=== PATIENT | male | born 1980 | race Two or more races ===

== ENCOUNTER 2023-08-15 14:23 | Emergency (ER) | payer MEDICAID ==
[~2023-08-15] VITALS: Ht 167.6 cm; Wt 104.5 kg
[2023-08-15 17:28] VITALS: BP 128/66; PULSE 69; RESP 18; TEMP 98; O2SAT 98
[2023-08-15] MEDS ORDERED: HYDROcodone-ACET 10/325MG TAB PO ONE (18:00)
[2023-08-15] MEDS ORDERED: KETOROLAC TROMETH 60MG/2ML VIAL IM ONE (18:00)
[2023-08-15] MEDS ORDERED: TRAM50TA2 PO (18:05)
[2023-08-15] MEDS ORDERED: IBUP-1455 PO (18:05)
== END 2023-08-15 18:31 | disposition home or self-care (01) ==
LOC: ER 14:23
DX: S93.491A Sprain of other ligament of right ankle, initial encounter (principal); X50.1XXA Overexertion from prolonged static or awkward postures, initial encounter; Y93.89 Activity, other specified; Y92.89 Other specified places as the place of occurrence of the external cause; Y99.8 Other external cause status
CPT/HCPCS: 73610; 96372; 99283; J1885

== ENCOUNTER 2024-09-05 20:55 | Emergency (ER) | payer MEDICAID ==
[~2024-09-05] VITALS: Ht 167.6 cm; Wt 100.0 kg
[~2024-09-05 20:55] MED LIST: IBUP-1455 PO; TRAM50TA2 PO
--- NOTE | 2024-09-05 21:06 | ED.PDOC ---
HPI Comments 44-year-old male who came to ER for chest pains. Patient does have history of leukemia, and he is on remission. States for the past few days he has been having episodes of dizziness, and at times like he was about to pass out. 15 minutes prior to arrival sudden onset left-sided chest pains, sharp, point tenderness, nonradiating. Denies any prior history of chest pains Chief Complaint: Chest Pain Time Seen by MD: 21:05 Primary Care Provider: DEVIN OSMAN Reviewed Notes: Nurses Notes Allergies: Coded Allergies: NO KNOWN ALLERGIES (Unverified , 08/15/23) Home Meds Active Scripts Tramadol Hcl (Tramadol Hcl) 50 Mg Tab, 50 MG PO Q6HP PRN, #30 TAB Prov:PEYMAN MCMAHAN PAC 08/15/23 Ibuprofen Micronized (Ibuprofen) 800 Mg Tab, 800 MG PO Q8HP PRN, #30 TAB Prov:PEYMAN MCMAHAN PAC 08/15/23 Information Source: Patient Mode of Arrival: Ambulatory Severity: Moderate Timing: Minutes Duration: Since onset Prehospital treatment: None Location: Chest (L) Radiation: No Radiation Quality: Sharp Onset: With Light Exertion Cardiac Risk Factors: None PE Risk Factors: None History of: None Associated Signs and Symptoms: Syncope Past Medical History PAST MEDICAL HISTORY: Cancer Surgical History: Denies all surgeries Family History Family History: Reviewed,noncontributory to illness Social History Smoker: Non-Smoker Alcohol: Denies ETOH Use Drugs: Denies Drug Use Lives In: Home Constitutional: denies: chills, diaphoresis, fatigue, fever, malaise, sweats, weakness, others EENTM: denies: blurred vision, double vision, ear bleeding, ear discharge, ear drainage, ear pain, ear ringing, eye pain, eye redness, hearing loss, mouth pain, mouth swelling, nasal discharge, nose bleeding, nose congestion, nose pain, photophobia, tearing, throat pain, throat swelling, voice changes, others Respiratory: denies: cough, hemoptysis, orthopnea, SOB at rest, shortness of breath, SOB with excertion, stridor, wheezing, others Cardiovascular: reports: chest pain, dizzy spells; denies: diaphoresis, Dyspnea on exertion, edema, irregular heart beat, left arm pain, lightheadedness, palpitations, PND, syncope, others Gastrointestinal: denies: abdomen distended, abdominal pain, blood streaked bowels, constipated, diarrhea, dysphagia, difficulty swallowing, hematemesis, melena, nausea, poor appetite, poor fluid intake, rectal bleeding, rectal pain, vomiting, others Genitourinary: denies: burning, dysuria, flank pain, frequency, hematuria, incontinence, penile discharge, penile sore, pain, testicle pain, testicle swelling, urgency, others Neurological: reports: dizziness; denies: fainting, headache, left sided numbness, left sided weakness, numbness, paresthesia, pre-existing deficit, right sided numbness, right sided weakness, seizure, speech problems, tingling, tremors, weakness, others Musculoskeletal: denies: back pain, gout, joint pain, joint swelling, muscle pain, muscle stiffness, neck pain, others Integumetry: denies: bruises, change in color, change in hair/nails, dryness, laceration, lesions, lumps, rash, wounds, others Allergic/Immunocompromised: denies: Difficulty Healing, Frequent Infections, Hives, Itching, others Hematologic/Lymphatic: denies: anemia, blood clots, easy bleeding, easy bruis ing, swollen glands, others Endocrine: denies: excessive hunger, excessive sweating, excessive thirst, exc essive urination, flushing, intolerance to cold, intolerance to heat, unexplained weight gain, unexplained weight loss, others Psychiatric: denies: anxiety, bipolar disorder, depression, hopeless, panic disorder, schizophrenia, sleepless, suicidal, others Physical Exam General Appearance: Moderate Distress ([id number] distress due to left- sided chest pain concerns.), Normal HEENT: Normal ENT Inspection, Pharynx Normal, TMs Normal Neck: Full Range of Motion, Non-Tender, Normal, Normal Inspection Respiratory: Lungs Clear, No Accessory Muscle Use, No Respiratory Distress, Normal Breath Sounds, Other (Patient has point specific chest pain at the midclavicular line between ribs five and six. No signs of trauma. No pulsatile masses.) Cardiovascular: No Edema, No JVD, No Murmur, No Gallop, Normal Peripheral Pulses, Regular Rate/Rhythm Breast Exam: Deferred Gastrointestinal: No Organomegaly, Non Tender, No Pulsatile Mass, Normal Bowel Sounds, Soft Genitalia: Deferred Pelvic: Deferred Rectal: Deferred Extremities: No calf tenderness, Normal capillary refill, Normal inspection, Normal range of motion, Non-tender, No pedal edema Musculoskeletal : Apperance: Normal Neurologic: Alert, No Motor Deficits, Normal Affect, Normal Mood, No Sensory Deficits Cerebellar Function: Normal Reflexes: Normal Skin: Dry, Normal Color, Warm Lymphatic: No Adenopathy Was a procedure done? Was a procedure done?: No CP Differential Dx Differential Diagnosis: Angina, Anxiety / Panic Attack, Hyperventilation Differential Diagnosis: Angina, Chest Wall Pain, Costochondritis, Esophageal reflux/spasm, Gastritis, Myocardial Infarction, Pneumonia X-Ray, Labs, Meds, VS Vital Signs Date Time Temp Pulse Resp B/P (MAP) Pulse Ox O2 Delivery O2 Flow Rate FiO2 09/05/24 22:15 97.8 77 18 140/79 (99) 95 97.8 09/05/24 22:15 77 18 95 Room Air 09/05/24 21:06 98.2 75 16 139/87 (104) 98 09/05/24 20:57 74 Lab Test 09/05/24 21:49 09/05/24 20:59 Range/Units Troponin I High Sensitivity 5 4 </=54 ng/L White Blood Count 6.5 4.4-10.8 10^3/uL Red Blood Count 4.79 4.5-5.90 10^6/uL Hemoglobin 15.0 13.5-17.5 g/dL Hematocrit 42.6 41.0-53.0 % Mean Corpuscular Volume 88.9 80.0-100.0 fL Mean Corpuscular Hemoglobin 31.3 28.0-32.0 pg Mean Corpuscular Hemoglobin Concent 35.2 32.0-36.0 g/dL Red Cell Distribution Width 13.0 11.8-14.3 % Platelet Count 215 140-450 10^3/uL Mean Platelet Volume 7.5 6.9-10.8 fL Neutrophils (%) (Auto) 45.1 37.0-80.0 % Lymphocytes (%) (Auto) 45.3 10.0-50.0 % Monocytes (%) (Auto) 6.6 0.0-12.0 % Eosinophils (%) (Auto) 2.3 0.0-7.0 % Basophils (%) (Auto) 0.7 0.0-2.0 % Neutrophils # (Auto) 2.9 1.6-8.6 10 ^3/uL Lymphocytes # (Auto) 2.9 0.4-5.4 10 ^3/uL Monocytes # (Auto) 0.4 0-1.3 10 ^3/uL Eosinophils # (Auto) 0.1 0-0.8 10 ^3/uL Basophils # (Auto) 0 0-0.2 10 ^3/uL Nucleated Red Blood Cells 0.2 % Sodium Level 142 136-145 mmol/L Potassium Level 4.0 3.5-5.1 mmol/L Chloride Level 110 H 98-107 mmol/L Carbon Dioxide Level 24 20-31 mmol/L Anion Gap 8 5-15 Blood Urea Nitrogen 16 9-23 mg/dL Creatinine 0.87 0.700-1.30 mg/dL Glomerular Filtration Rate Calc 110 >90 mL/min BUN/Creatinine Ratio 18.4 10.0-20.0 Serum Glucose 103 74-106 mg/dL Calcium Level 9.9 8.7-10.4 mg/dL Lipase 42 12-53 U/L Current Medications Medications (Trade) Dose Ordered Sig/No Route Start Time Stop Time Status Last Admin Ketorolac Tromethamine (Toradol Injection) 30 mg ONCE ONCE IM 09/05/24 21:15 09/05/24 21:16 DC 09/05/24 22:19 X-Ray, Labs, Meds, VS Comment All studies performed the ED were evaluated by me personally. Laboratories were unremarkable for any systemic illness or cardiac concern. EKGs revealed a sinus rhythm with a rate of 74, SC interval of 157 and QT interval with 372. Normal EKG. Based on the patient's presentation, I believe the patient is suffering from a costochondritis event. Patient had good response to his symptoms status post medication dispensed. Advised patient utilize medication as needed for symptomatic relief. Time of 1ST Reevaluation: 23:12 Reevaluation 1ST: Improved Consultation: PCP Patient Education/Counseling: Diagnosis, Treatment Family Education/Counseling: Diagnosis, Treatment, No Family Present Departure 1 Departure Time of Disposition: 23:12 Impression: Primary Impression: Costochondritis Disposition: HOME / SELF CARE / HOMELESS Condition: Stable Additional Instructions: Advised patient utilize ibuprofen as needed for symptomatic relief. e-Prescriptions Ibuprofen (Ibuprofen) 800 Mg Tab 1 TAB PO TID, #20 TAB 0 Refills Prov: PEYMAN MCMAHAN PAC 09/05/24 Discharged With: Self, Friend Critical Care Note Critical Care Time?: No Stability Stability form required: No Heart Score Heart Score: Heart Score Response (Comments) Value History Slightly Suspicious 0 EKG Normal 0 Age <45 0 Risk Factors 1 or 2 risk factors 1 Troponin Normal limit 0 Total 1 I personally scribed for PEYMAN MCMAHAN PAC ([email or web address]) on 09/05/24 at 21:06. Electronically submitted by Pato Velarde ([facility]). PEYMAN MCMAHAN PAC Sep 05, 2024 21:06
[2024-09-05 21:24] LABS: Basophils # (auto) 0 10 ^3/uL (0-0.2); Basophils % (auto) 0.7 % (0.0-2.0); Eosinophils # (auto) 0.1 10 ^3/uL (0-0.8); Eosinophils % (auto) 2.3 % (0.0-7.0); Hematocrit 42.6 % (41.0-53.0); Lymphocytes # (auto) 2.9 10 ^3/uL (0.4-5.4); Lymphocytes % (auto) 45.3 % (10.0-50.0); Mean Corpuscular Hemoglobin 31.3 pg (28.0-32.0); Mean Corpuscular Hgb Conc. 35.2 g/dL (32.0-36.0); Mean Corpuscular Volume 88.9 fL (80.0-100.0); Monocytes # (auto) 0.4 10 ^3/uL (0-1.3); Monocytes % (auto) 6.6 % (0.0-12.0); Neutrophils # (auto) 2.9 10 ^3/uL (1.6-8.6); Neutrophils % (auto) 45.1 % (37.0-80.0); Nucleated Red Blood Cells % 0.2 %; Platelet Count (auto) 215 10^3/uL (140-450); Red Blood Cells 4.79 10^6/uL (4.5-5.90); White Blood Cell 6.5 10^3/uL (4.4-10.8)
[2024-09-05 21:37] LABS: Sodium 142 mmol/L (136-145)
[2024-09-05 21:38] LABS: Anion Gap 8 (5-15); Carbon Dioxide 24 mmol/L (20-31)
[2024-09-05 21:39] LABS: Calcium 9.9 mg/dL (8.7-10.4)
[2024-09-05 21:43] LABS: BUN/Creatinine Ratio 18.4 (10.0-20.0); Blood Urea Nitrogen 16 mg/dL (9-23); Glucose 103 mg/dL (74-106)
[2024-09-05 21:48] LABS: Chloride 110 mmol/L (98-107)
[2024-09-05 22:02] LABS: Lipase 42 U/L (12-53)
[2024-09-05 22:15] VITALS: BP 140/79; PULSE 77; RESP 18; TEMP 97.8; O2SAT 95
[2024-09-05] MEDS: KETOROLAC TROMETH 60MG/2ML VIAL IM ONE (22:19)
[2024-09-05] MEDS ORDERED: IBUP-1456 PO (23:13)
--- NOTE | 2024-09-06 06:53 | ECG ---
[facility] Test Date: 2024-09-05 Test Time: 20:57:18 Pat Name: MARTHA PÉREZ Department: ER Room: Gender: M [employer] Teacher: LESLEE : 1980 Requested By: VALE HAQUE Order Number: [id number] Reading MD: Steve Srinivasan Measurements Intervals [place] Rate: 74 P: 43 CO: 157 QRS: 4 QRSD: 98 T: 21 QT: 372 QTc: 413 Interpretive Statements Sinus rhythm Electronically Signed On 09-12-2024 9:49:16 PST by Steve Srinivasan Please click the below link to view image of tracing.
== END 2024-09-06 01:30 | disposition home or self-care (01) ==
LOC: ER 20:58
DX: M94.0 Chondrocostal junction syndrome [Tietze] (principal); R42 Dizziness and giddiness; R55 Syncope and collapse
CPT/HCPCS: 36415; 80048; 83690; 84484; 85025; 93005; 96372; 99284; J1885